=== PATIENT | male | born 1965 | race Caucasian/White ===

== ENCOUNTER → 2017-07-01 | Outpatient (CLI) | payer OTHER ==
[~2017-07-01] MED LIST: FEXO1TAB49 PO; MULT-506 PO; TAMS0.4C38 PO
== END | disposition home or self-care (01) ==
LOC: C.LABPVFM 07:40
PROVIDERS: ATTEND Urology
DX: N52.9 Male erectile dysfunction, unspecified (principal); R35.0 Frequency of micturition